=== PATIENT | female | born 1960 | race Asian ===

== ENCOUNTER 2021-02-19 10:52 | Day surgery (SDC) | payer OTHER ==
[2021-02-18 10:30] VITALS: BMI 27.4
[2021-02-19] MEDS ORDERED: ROPIVACAINE HCL/PF 100 MG/20 ML VIAL ONE ×2 (12:45→12:46)
[2021-02-19] MEDS ORDERED: MIDAZOLAM HCL 2 MG/2 ML SINGLE DOSE VIAL ONE (12:45)
[2021-02-19] MEDS ORDERED: PROPOFOL 20 ML ONE (13:25)
[2021-02-19] MEDS ORDERED: LIDOCAINE HCL 2% JELLY (5 ML/TUBE) ONE (13:26)
[2021-02-19] MEDS ORDERED: ePHEDrine SULFATE 50 MG/1 ML AMPULE ONE (13:53)
[2021-02-19] MEDS ORDERED: ONDANSETRON 4 MG/2 ML VIAL IVPUSH PRN (13:59)
[2021-02-19] MEDS ORDERED: oxyCODONE HCL 5 MG TABLET PO PRN (13:59)
[2021-02-19] MEDS ORDERED: PROMETHAZINE HCL 25 MG/1 ML VIAL IVPUSH PRN (13:59)
[2021-02-19] MEDS ORDERED: LACTATED RINGERS SOLUTION 1,000 ML IV SCH (14:00)
[2021-02-19 16:15] VITALS: PULSE 77; TEMP 97
[2021-02-19 16:25] VITALS: BP 146/80
== END 2021-02-19 16:30 | disposition home or self-care (01) ==
LOC: FASU 10:52
PROVIDERS: ATTEND Orthopaedic Surgery Sports Medicine
PROC: 0LQ24ZZ Repair Left Shoulder Tendon, Percutaneous Endoscopic Approach (ICD-10-PCS; principal; 2021-02-19 13:59)
PROC: 0LS44ZZ Reposition Left Upper Arm Tendon, Percutaneous Endoscopic Approach (ICD-10-PCS; 2021-02-19 13:59)
PROC: 0RNK4ZZ Release Left Shoulder Joint, Percutaneous Endoscopic Approach (ICD-10-PCS; 2021-02-19 13:59)
DX: M75.122 Complete rotator cuff tear or rupture of left shoulder, not specified as traumatic (principal); M75.22 Bicipital tendinitis, left shoulder; M24.112 Other articular cartilage disorders, left shoulder
CPT/HCPCS: 94760